=== PATIENT | male | born 1980 | race Caucasian/White ===

== ENCOUNTER 2017-09-19 22:31 | Inpatient (IN) | payer BC ==
[~2017-09-19] VITALS: Ht 188 cm; Wt 135.7 kg
[~2017-09-19 22:31] MED LIST: DILAUDID2 MG PO; OXAYDO5 MG PO
[2017-09-19 23:10] LABS: HEMATOCRIT 46.4 % (38.0-50.0); HEMOGLOBIN 16.2 G/DL (12.5-16.6); MCH 30.3 PG (29.0-34.0); MCHC 34.9 G/DL (30.0-36.0); MCV 86.7 FL (86-99); PLATELET COUNT 323 K/uL (156-360); RBC DIS.WIDTH-CV 12.4 % (11.8-14.6); RBC DIS.WIDTH-SD 39.4 % (39-53); RED BLOOD COUNT 5.35 M/uL (4.00-5.50); WHITE BLOOD COUNT 12.3 K/uL (4.1-10.2)
[2017-09-19 23:17] LABS: CHLORIDE 103 mEq/L (99-109); SODIUM 142 mEq/L (136-147)
[2017-09-19 23:19] LABS: GLUCOSE 129 mg/dL (70-99)
[2017-09-19 23:23] LABS: CREATININE 0.8 mg/dL (0.6-1.3); GFR ESTIMATE (CALCULATED) > 59 mL/min/ (58.99-99999)
[2017-09-19 23:24] LABS: UREA NITROGEN (BUN) 10 mg/dL (9-23)
[2017-09-19 23:58] LABS: INTER. NORMALIZED RATIO 1.1
[2017-09-20 00:01] LABS: PTT 28.1 SEC (25-37)
[2017-09-20] MEDS ORDERED: RIZATRIPTAN10 M1 PO (01:36)
[2017-09-20] MEDS ORDERED: ALEVE220 MG PO (01:40)
[2017-09-20] MEDS ORDERED: MIGRAINE RELIE1 EAC2 PO (01:52)
[2017-09-20 03:31] VITALS: BP 174/84
[2017-09-20 07:07] VITALS: BP 117/60
[2017-09-20 09:59] LABS: APPEARANCE CLEAR ((CLEAR)); BILIRUBIN NEGATIVE; BLOOD NEGATIVE; COLOR YELLOW ((YELLOW)); GLUCOSE (STRIP) NEGATIVE; KETONES 20; LEUKOCYTES NEGATIVE; NITRITE NEGATIVE; PROTEIN (STRIP) NEGATIVE; SPECIFIC GRAVITY 1.023 (1.000-1.030)
[2017-09-20 11:44] VITALS: BP 110/65
[2017-09-20 21:24] VITALS: BP 123/62
[2017-09-20 23:35] VITALS: BP 130/75
[2017-09-21 03:07] VITALS: BP 119/59
[2017-09-21 05:53] LABS: HEMATOCRIT 44.2 % (38.0-50.0); HEMOGLOBIN 14.9 G/DL (12.5-16.6); MCH 29.2 PG (29.0-34.0); MCHC 33.7 G/DL (30.0-36.0); MCV 86.7 FL (86-99); PLATELET COUNT 323 K/uL (156-360); RBC DIS.WIDTH-CV 12.3 % (11.8-14.6); RBC DIS.WIDTH-SD 39.4 % (39-53); WHITE BLOOD COUNT 15.3 K/uL (4.1-10.2)
[2017-09-21 06:19] LABS: CHLORIDE 106 MEQ/L (99-109); CREATININE 0.8 MG/DL (0.6-1.3); GFR ESTIMATE (CALCULATED) > 59 mL/min/ (58.99-99999); GLUCOSE 134 mg/dL (70-99); POTASSIUM 4.4 MEQ/L (3.7-5.4); SODIUM 140 MEQ/L (136-147); UREA NITROGEN (BUN) 17 mg/dL (9-23)
[2017-09-21 06:47] VITALS: BP 109/66
[2017-09-21 11:20] VITALS: BP 120/59
[2017-09-21 14:54] VITALS: BP 109/64
[2017-09-21] MEDS ORDERED: ZOFRAN4 MG PO (15:31)
[2017-09-21 15:32] VITALS: BP 120/59
[2017-09-21] MEDS ORDERED: MORPHABOND ER15 MG PO (15:32)
[2017-09-21] MEDS ORDERED: DECADRON2 MG PO (15:32)
== END 2017-09-21 17:27 | disposition home or self-care (01) | DRG 55 ==
LOC: RME 22:31 → EME 22:31 → EDOF 09-20 02:02 → 5EAST 09-20 02:02 → CANRESERV 09-20 02:03 → ENRESERV 09-20 02:03 → 4EAST 09-20 03:12 → ENRESERV 09-20 11:42 → 5EAST 09-20 14:01 → ENRESERV 09-20 14:01 → 5EAST 09-20 14:05
PROVIDERS: Hospitalist; Physician Assistant
DX: C71.1 Malignant neoplasm of frontal lobe (principal); D72.829 Elevated white blood cell count, unspecified; F17.210 Nicotine dependence, cigarettes, uncomplicated; Z80.0 Family history of malignant neoplasm of digestive organs; Z80.1 Family history of malignant neoplasm of trachea, bronchus and lung
CPT/HCPCS: 70450; 70553; 80048; 81003; 82948; 85027; 85610; 85730; 99281; 99285; C9113; J1100; J1644; J1885; J2270; J2405; J2765; J3010; J7030

== ENCOUNTER 2017-11-19 22:55 | Observation (INO) | payer BC ==
[~2017-11-19] VITALS: Ht 188 cm; Wt 127.6 kg
[~2017-11-19 22:55] MED LIST changes: +ALEVE220 MG PO; +DECADRON2 MG PO; +MIGRAINE RELIE1 EAC2 PO; +MORPHABOND ER15 MG PO; +RIZATRIPTAN10 M1 PO; +ZOFRAN4 MG PO
[2017-11-20 00:40] LABS: HEMATOCRIT 42.7 % (38.0-50.0); HEMOGLOBIN 14.1 G/DL (12.5-16.6); MCH 30.9 PG (29.0-34.0); MCV 93.4 FL (86-99); PLATELET COUNT 237 K/uL (156-360); RBC DIS.WIDTH-CV 14.3 % (11.8-14.6); RBC DIS.WIDTH-SD 49.7 % (39-53); RED BLOOD COUNT 4.57 M/uL (4.00-5.50); WHITE BLOOD COUNT 13.9 K/uL (4.1-10.2)
[2017-11-20 00:50] LABS: CHLORIDE 104 mEq/L (99-109); POTASSIUM 4.1 mEq/L (3.7-5.4); SODIUM 142 mEq/L (136-147)
[2017-11-20 00:51] LABS: GLUCOSE 102 mg/dL (70-99)
[2017-11-20 00:55] LABS: CREATININE 0.8 mg/dL (0.6-1.3); GFR ESTIMATE (CALCULATED) > 59 mL/min/ (58.99-99999)
[2017-11-20 00:56] LABS: UREA NITROGEN (BUN) 22 mg/dL (9-23)
[2017-11-20] MEDS ORDERED: BACTRIM,SEPT1 TABLET PO (11:53)
[2017-11-20] MEDS ORDERED: TEMOZOLOMIDE100 MG PO (11:54)
[2017-11-20] MEDS ORDERED: ZOFRAN8 MG PO (11:54)
[2017-11-20] MEDS ORDERED: COLACE100 MG PO (11:56)
[2017-11-20] MEDS ORDERED: TYLENOL REGULA325 MG PO (11:56)
[2017-11-20] MEDS ORDERED: LEVETIRACETAM750 MG PO (11:56)
[2017-11-20] MEDS ORDERED: HYDROMORPHONE HC4 MG PO (11:57)
[2017-11-20] MEDS ORDERED: RANITIDINE HCL150 MG PO (11:57)
[2017-11-20] MEDS ORDERED: DEXAMETHASONE4 MG PO (11:58)
[2017-11-20 15:33] VITALS: BP 129/80
[2017-11-20 20:43] VITALS: BP 124/70
[2017-11-21 00:02] VITALS: BP 125/80
[2017-11-21 03:47] VITALS: BP 132/68
[2017-11-21 08:11] VITALS: BP 118/67
== END 2017-11-21 13:29 | disposition home or self-care (01) ==
LOC: EME 22:55 → EDOF 11-20 15:05 → 3EAST 11-20 15:28
PROC: 00W Central Nervous System and Cranial Nerves, Revision (ICD-10-PCS; principal; 2017-11-20)
DX: G91.9 Hydrocephalus, unspecified (principal); C71.9 Malignant neoplasm of brain, unspecified; Z98.2 Presence of cerebrospinal fluid drainage device; Z98.890 Other specified postprocedural states; Z92.21 Personal history of antineoplastic chemotherapy; Z92.3 Personal history of irradiation; Z98.1 Arthrodesis status; Z90.49 Acquired absence of other specified parts of digestive tract; Z88.5 Allergy status to narcotic agent; F17.200 Nicotine dependence, unspecified, uncomplicated
CPT/HCPCS: 70250; 70360; 70450; 71045; 74018; 80048; 85027; 99281; 99285; G0378; J1100; J1200; J1885; J2405; J2765; J7030; J8540